=== PATIENT | male | born 1970 | race Caucasian/White ===

== ENCOUNTER 2016-09-30 09:26 | Emergency (ER) | payer OTHER ==
[~2016-09-30] VITALS: Ht 167.6 cm; Wt 105.0 kg
[~2016-09-30 09:26] MED LIST: ALBUAER2 INH
[2016-09-30 09:30] VITALS: TEMP 36.9; Ht 167.6 cm; Wt 105.0 kg
[2016-09-30] MEDS ORDERED: VNTHFA/IN INH (09:57)
[2016-09-30] MEDS ORDERED: OXYC-57 PO (09:57)
[2016-09-30] MEDS ORDERED: MoRPHine SULFATE 4 MG/ML 1 ML CARP\\VIAL IM STA (10:40)
[2016-09-30] MEDS ORDERED: DEXAMETHASONE SOD INJ 10 MG/ML VIAL IM ONE (10:45)
[2016-09-30] MEDS ORDERED: ONDANSETRON 4MG OD TAB PO ONE (10:45)
[2016-09-30] MEDS ORDERED: OXYC1TAB3 PO (12:05)
[2016-09-30] MEDS ORDERED: PRED50TA PO (12:05)
--- NOTE | 2016-09-30 12:06 | EMERGENCY ROOM VISIT NOTE ---
History First contact with patient: 10:19 Chief Complaint: LEG PAIN,LEG INJURY Stated Complaint: RIGHT LEG PAIN AND SWELLING History of Present Illness The patient is a 45 year old male who presents to the Emergency Department by private vehicle for evaluation of his RIGHT-sided leg pain and low back pain. He reports a history of lumbar trauma several years ago. He reports that he was "paralyzed" for several years. He was eventually able to get to the point where he could ambulate with a cane. He reports that he awoke yesterday with increasing pain in his low back with radiation down his RIGHT leg. He reports that this does occur occasionally. He reports some numbness to the anterior surface of the leg which waxes and wanes. He denies any falls or trauma to the spine. He rates his current discomfort as a 10/10. He denies any fevers, chills, loss of control bowel/bladder, saddle anesthesia, abdominal pain, hematuria, or dysuria. Review of Systems A complete 10-point Review of Systems was discussed with the patient, with pertinent positives and negatives listed in the History of Present Illness. All remaining Review of Systems questions can be considered negative unless otherwise specified. Past Medical/Surgical History Medical Problems: (1) ASTHMA, UNSPECIFIED (2) HTN (hypertension) Surgical Problems: (1) History of appendectomy Family History FH: HTN (hypertension) FH: cancer FH: diabetes mellitus Social History Smoking Status: Current Every Day Smoker Alcohol Use: none Drug Use: none Marital Status: single Occupation Status: employed Current/Historical Medications Scheduled Albuterol Hfa (Ventolin Hfa), 2-4 PUFFS INH Q6H Budesonide/Formoterol Fumarate (Symbicort 80/4.5 Inhaler), 2 PUFFS INH BID Prednisone (Prednisone), 50 MG PO DAILY Scheduled PRN Oxycodone Ir (Roxicodone Ir), 1-2 TAB PO Q4H PRN for Pain Oxycodone/Acetaminophen 5MG/325MG (Percocet 5MG/325MG), 1 TABLETS PO BID PRN for Pain Allergies Coded Allergies: Aspirin (Verified Allergy, Unknown, 09/30/16) Physical Exam Vital Signs Date Time Temp Pulse Resp B/P Pulse Ox O2 Delivery O2 Flow Rate FiO2 09/30/16 12:26 69 16 140/75 98 Room Air 09/30/16 10:08 73 09/30/16 09:30 36.9 74 18 150/99 94 Room Air Pain Rating (0-10): 10 Physical Exam VITAL SIGNS - Vital signs and nursing notes were reviewed. GENERAL - 45-year-old male appearing his stated age and in noticeable discomfort throughout the exam. NECK - FROM of the cervical spine. ABDOMEN - Abdominal contour obese without pulsations or visible masses. BS normoactive all four quadrants. No tenderness, palpable masses, hepatosplenomegaly, or ascites noted. MUSCULOSKELETAL - ROM of the lumbar spine region was limited secondary to patient discomfort. Pt was laying on the exam table. Pt made guarded movements when asked to change position. No step-off deformities were palpated down the thoracolumbar spines. Moderate Tenderness to Palpation experienced at the level of the RIGHT sided paraspinal muscle distribution. No reproducible tenderness to palpation across the iliac spine. NEUROLOGIC - REFLEXES: +1/4 patellar reflexes B/L. SENSORY: Spinothalamic tract was found to be intact with ability to discriminate sharp versus dull sensation at the level of hip joint down do the great toe. No sensory defects of the dorsal column were appreciated utilizing light touch for evaluation. CEREBELLAR: Pt able to perform rapid alternating movements of the feet. EXTREMITIES - Range of Motion - No tremors, ticks, or fasciculations of the lower extremities noticed during inspection. Pt had +4/5 strength appreciated bilaterally in the lower extremities against examiner's resistance. VASCULAR - Capillary refill of the great toe was brisk. No mottling or blanching of the extremities present. +3/5 dorsalis pedis pulses palpated bilaterally. Medical Decision & Procedures Medications Administered Medications (Trade) Dose Ordered Sig/Haris Route Start Time Stop Time Status Last Admin Dose Admin Morphine Sulfate (MoRPHine SULFATE INJ) 4 mg NOW STAT IM 09/30/16 10:40 09/30/16 10:41 DC 09/30/16 11:03 4 MG Dexamethasone Sodium Phosphate (Decadron Inj) 10 mg NOW ONCE IM 09/30/16 10:45 09/30/16 10:46 DC 09/30/16 11:04 10 MG Ondansetron HCl (Zofran Odt) 4 mg ONE ONCE PO 09/30/16 10:45 09/30/16 10:46 DC 09/30/16 11:03 4 MG ED Course Patient was seen and evaluated by myself. Previous emergency department visit notes were reviewed. Patient was treated with 4 mg morphine, 10 mg Decadron, and 4 mg Zofran. Patient was reevaluated and reports feeling much better at this time. The patient was encouraged to follow up with his primary care provider for continued management. He was educated on worrisome symptoms for return visit to the emergency department. Patient discharged home afebrile and in good condition. Medical Decision Given the patient's presentation and stated complaints, I did elect to perform the above-mentioned workup. The patient presents today with an acute exacerbation of chronic lumbar back pain. He does have subjective RIGHT-sided radiculopathy. He has no worrisome exam findings at this point. The patient was treated and responded well to pain medication and anti-inflammatories. He' ll replace a short course of prednisone. He has Percocet to use at home in the interim. He will follow-up with his primary care provider or return for any changing or worsening symptoms. Patient discharged home in good condition. In the evaluation and treatment of this patient the following differential diagnoses were considered: Cauda equina syndrome, discitis, HNP, sciatica, epidural abscess, psoas abscess, musculoskeletal strain, lumbar fracture, lumbar dislocation, lumbar subluxation, spondylolisthesis, spondylosis, or compression fracture. Impression Primary Impression: Lumbar radiculopathy, right Additional Impression: Acute exacerbation of chronic low back pain Departure Information Dispostion Home / Self-Care Condition GOOD Prescriptions Prednisone (Prednisone) 50 Mg Tab 50 MG PO DAILY for 4 Days, #4 TAB Prov: Ector Solorio PA-C 09/30/16 Oxycodone Ir (Roxicodone Ir) 5 Mg Tab 1-2 TAB PO Q4H Y for Pain, #10 TAB For Initial Treatment Prov: Ector Solorio PA-C 09/30/16 Referrals No Doctor, Assigned (PCP) Patient Instructions Back Pain - [facility], [facility] Additional Instructions You have been treated in the Emergency Department for Back Pain. You have received pain medicine in the emergency department which impairs your ability to operate a vehicle. It is illegal for you to drive after receiving these medicines. You have been prescribed OxyIR to be used for pain control. This is a narcotic medication. You cannot drive or consume alcohol while on this medicine. This medicine should only be used for pain that cannot be controlled with over-the- counter pain medicines. You have been prescribed Prednisone 50 mg to be taken orally once a day for the next 4 days. This is an anti-inflammatory medicine to be used to help minimize your symptoms. You should take the COMPLETE course of the medication. For pain control, you can use the following gljg-lii-mttbiko medicines (if >12 yo): - Regular strength (325mg/tab) Tylenol (acetaminophen) 2 tabs every 4-6 hours as needed. Do not exceed 12 tablets in a 24 hour period. Avoid taking more than 4 grams (4000 mg) of Tylenol per day. This includes any other sources of acetaminophen you may take on a regular basis. - Regular strength (200 mg/tab) Advil (ibuprofen) 1-2 tabs every 4-6 hours as needed. Do not exceed a dose of 3200 mg per day. If this is an acute injury, ice can be applied to the area of pain for the first 3 days to help decrease pain and inflammation. After the first 3 days, a heating pad can be used over the area for continued soothing relief. You should schedule a follow-up appointment in 2-3 days with your Primary Care Provider for further evaluation and treatment of your back pain. Return to the Emergency Department if your current symptoms worsen despite treatment course outlined above, or if you develop any of the following symptoms : intractable pain despite aforementioned treatment course, loss of control of your bowel or bladder, numbness or tingling in your groin, or development of a fever. Problem Qualifiers
[2016-09-30 12:26] VITALS: BP 140/75; PULSE 69; O2SAT 98
[2016-09-30] MEDS ORDERED: SYMIN/8045 INH (14:44)
== END 2016-09-30 12:26 | disposition home or self-care (01) ==
LOC: C.EDB 09:28 → C.EDC 12:26
DX: M54.16 Radiculopathy, lumbar region (principal); M54.5 Low back pain; G89.29 Other chronic pain; J45.909 Unspecified asthma, uncomplicated; I10 Essential (primary) hypertension; F17.210 Nicotine dependence, cigarettes, uncomplicated

== ENCOUNTER → 2016-12-15 | Outpatient (CLI) | payer OTHER ==
[~2016-12-15] MED LIST changes: -ALBUAER2 INH; +OXYC-57 PO; +OXYC1TAB3 PO; +SYMIN/8045 INH; +VNTHFA/IN INH
--- NOTE | 2016-12-16 04:34 | PAP/PSG TECHNICIAN REPORT ---
[facility] Construction Electrician Polysomnogram Report Study name: None Report date: 12/16/2016 Study date: 12/15/2016 Referring Physician: Mac Lazo M.D. Name: SHARMIN TALAVERA Interpreting Physician: Mac Lazo M.D. Date of : 1970 Construction Electrician: Joie Emanuel RPS. Sex: Male Age: 46 StudyType: PSG Weight: 227 lbs Height: 46 years, Height 5' 7" BMI: 35.55 Medications: Sildenafil 20 mg, Ventolin HFA 108 ( 90 Base), Oxycodone-Acetaminophen 5-325mg Patient History 46 yr. old male here for diagnostic sleep study. Patient was diagnosed with SABI in past. Patient complains of loud snoring, witnessed apnea and EDS. Patient is a heavy smoker. Patient has chronic back pain, and sometimes needs to get out of bed and stand for awhile. Patients [place] sleepiness scale score is 10/24. Parameters Monitored NPSG: E1-M2, E2-M1, Fp1-M2, Fp2-M1, F3-M2, F4-M2, F4-M1, C3-M2, C4-M2, C4-M1, O1-M2, O2-M2, O2-M1, T3-M2, T4-M1, P3-M2, P4-M1, CHIN1, CHIN2, HR, EKG, Legs, PFLOW, SNOR, FLOW, CFLOW, Tidal Volume, THOR, ABDO, SpO2, PLTH, CPRESS, ETCO2 Wave, ETCO2, pH Sleep Architecture Sleep Stages Time at Lights Off 9:56:47 PM STAGES Time (min.) TST (%) Time at Lights On 4:17:47 AM Wake 110.0 -- Total Recording Time (TRT) 368.50 min. N1 15.5 6 Total Sleep Period (TSP) 303.0 min. N2 192.5 74 Total Sleep Time (TST) 258.5min. N3 14.0 5 Awake Time 110.0 min. REM 36.5 14 Wake after Sleep Onset 61.5 min. Sleep Efficiency (SE) 70 % Sleep Onset Latency (JANNA) 61.0 min. Number of Stage 1 Shifts None Awakenings 12 Stage Changes 52 Number of REM periods 5 REM 36.5 14 REM Latency 69.5 min. NREM 222.0 86 Body Position Analysis Supine Right Left Side Prone Vertical Total Sleep Time (min.) 229.8 71.9 0.0 71.87 5.2 41.6 Total Sleep Time (%) 72% 28% 0% 28 0% N/A% Total Sleep Time REM (min.) 21.5 15.0 0.0 None 0.0 0.0 Total Sleep Time NREM (min.) 165.1 56.9 0.0 None 0.0 0.0 Intermittent Wake (min.) 43.1 20.2 0.0 None 5.2 41.6 Total Sleep Period (%) 68% None None None None None Arousals Myoclonus (PLM) * Events Count Index Events Count Index Spontaneous 2 0 Events Awake (PLMW) 67 36.5 Respiratory 3 1.4 Events Asleep w/ Arousal (PLMA) 4 0.9 PLM 3 1 Events Asleep w/o Arousal (PLMS) 25 5.8 Snoring 4 1 Total Asleep 29 6.7 Total 12 3 Total 96 16 Respiratory Analysis * CA OA MA CH H RERA Total Count 0 1 0 0 47 1 48 Index 0.0 0.2 0.0 0 10.9 0 11.4 Mean Duration 0.0 9.9 0.0 0.00 21.1 38.3 21.2 Longest Duration 0.0 9.9 0.0 0.00 0.0 38.3 49.0 Respiratory Event Summary Total Supine ~Supine Right Left Prone REM NREM Apneas Count 1 1 0 0 N/A N/A 1 0 Index 0.2 0 0 0.0 N/A N/A 2 0 Hypopneas (4% Desat) Count 47 31 16 16 N/A N/A 33 14 Index 10.9 10.0 13 13.4 N/A N/A 54.2 3.8 Apneas & All Hypopneas Count 48 32 16 16 N/A N/A 34 14 Index 11.1 10 13 13 N/A N/A 55.9 3.8 Respiratory Events (Supervisor Engraving+All Hyp+RERA) Count 48 33 16 16 N/A N/A 34 14 Index 11.4 11 13 13.4 N/A N/A 55.9 4.1 Respiratory Related Arousal Count 3 33 0 0 N/A N/A 3 3 Index 1.4 2 0 0 N/A N/A 5 1 Snoring Analysis Supine Right Left Prone REM NREM Total Snore duration 25.7 min Snores count 1,060 204 N/A N/A 119 1,145 1,264 Snore mean duration 1.2 Sec Snores index 341 170 N/A N/A 195.6 309.5 293.4 TST with snoring (%) 9.9% Desaturation Event Summary: Minimum %SpO2 Event Count Mean/Min/Max Duration(sec.) Desaturation Index % Time In Bed > 90 27 35.1 / 10.8 / 60.0 41.5 10.9 86 - 90 49 24.9 / 5.3 / 54.8 9.5 86.0 81 - 85 4 20.1 / 16.3 / 23.3 27.5 2.4 76 - 80 0 N/A 0.0 0.6 71 - 75 0 N/A 0.0 0.0 66 - 70 0 N/A 0.0 0.0 61 - 65 0 N/A 0.0 0.0 56 - 60 0 N/A 0.0 0.0 51 - 55 0 N/A 0.0 0.0 < 50 0 N/A 0.0 0.0 Total REM NREM Awake <50% 0.0 min. 0.0 min. 0.0 min. 0.0 min. 51 - 60% 0.0 min. 0.0 min. 0.0 min. 0.0 min. 61 - 70% 0.0 min. 0.0 min. 0.0 min. 0.0 min. 71 - 80% 2.2 min. 1.6 min. 0.4 min. 0.3 min. 81 - 90% 317.1 min. 28.8 min. 217.6 min. 70.7 min. 91 - 100% 39.1 min. 6.1 min. 4.0 min. 28.9 min. Average 89 87 88 90 Minimum SpO2 75 75 76 77 Desaturation Event Index 9.9 54.2 3.5 8.2 # Desat. Events below 89% 61 33 13 15 Time(%) with Saturation below 89% 50.7 5.2 38.5 6.9 Time(min.) with Saturation below 89% 181.8 18.7 138.1 24.9 Time (mins) REM (mins) NREM (mins) % of TST SpO2 Below 90% 46 33 N13 88.6 SpO2 Below 88% 18 0 0 25 Heart Rate Analysis Min (bpm) Max (bpm) Average (bpm) Awake 60 109 75 NREM 61 98 71 REM 55 87 72 Overall 55 98 71 Supplemental O2 Values Minimum O2 level: None Value Start Time End Time Construction Electrician Comments slept in the right, prone, and supine positions. No cardiac arrhythmia. PLMs noted. No bruxism noted. Snoring was noted and scored as a 4 on a scale of 0 through 5. (0=no snoring, 5=snoring loud enough to be heard through a closed door or down the storm way) awoke to use the restroom once during the night. stated, I did not sleep, the bed was too hard and my back was really bothering me. The final report will be interpreted and signed by a sleep physician. The completed physician report will then be placed in the patient medical record. Therapy (cm H2O) 0 TIB (min.) 368.5 TST (min.) 258.5 Sleep Onset (min.) 61.0 REM Onset From Sleep (min.) 69.5 Sleep Efficiency % 70 Wakefulness (%) 29 Wakefulness (min.) 110.0 NREM 1 (%) 6 NREM 1 (min.) 15.5 NREM 2 (%) 74 NREM 2 (min.) 192.5 NREM 3 (%) 5 NREM 3 (min.) 14.0 REM (%) 14 REM (min.) 36.5 # Arousals 12 Arousal Index 3 # Snore 1,264 Snore Index 293.4 AHI 11.1 AHI Supine 10 AHI Non-Supine 13 NREM AHI 3.8 REM AHI 55.9 RDI 11.4 # Obstructive Apnea 1 # Central Apnea 0 # Mixed Apnea 0 # Hypopneas 47 RERAs 1 Total Respiratory Events 53 Time Below SpO2 89% (min.) 156.9 Mean NREM SpO2 (%) 88 Mean REM SpO2 (%) 87 Mean Sleep SpO2 (%) 88 Min NREM SpO2 (%) 76 Min REM SpO2 (%) 75 Position Supine (min.) 229.8 Position Non-supine (min.) 71.9 LM Index Sleep 6.7 LM Index NREM 5.9 LM Index REM 11.5 Mean Heart Rate (bpm) 71 Min Heart Rate (bpm) 55
--- NOTE | 2016-12-16 15:03 | POLYSOMNOGRAPH REPORT ---
CLINICAL DATA: 46-year-old male with BMI of 35.[address] Magana with a history of sleep apnea diagnosed in the past. He has loud snoring, witnessed apneas and excessive daytime sleepiness. He also has chronic back pain and has to get out of bed because of his back pain. SLEEP ARCHITECTURE: Total sleep period was 303 minutes. Total sleep time was 258.5 minutes divided between 222 minutes of non-REM sleep and 36.5 minutes of REM sleep. Sleep onset latency was delayed at 61 minutes. REM latency was 69.5 minutes. Sleep efficiency was 78%. Wake after sleep onset was 61.5 minutes. Sleep consisted of stage N1 6%, N2 74%, N3 5%,and REM 14%. AROUSAL DATA: 12 arousals were recorded for an index of 3 per hour. PLM DATA: 29 limb movements of sleep were noted for an index of 6.7 per hour with arousal index of 0.9 per hour. RESPIRATORY DATA: Mild sleep apnea was documented. The AHI was 11.1. There was 1 obstructive apneic episode, 10 seconds in duration. There were 47 hypopneic episodes. The mean duration of hypopnea was 21.1 seconds. OXIMETRY DATA: Nocturnal hypoxemia was seen. Oxygen shannon was 75% during REM. The mean saturation was 89%. Time below 88% was 18 minutes. EKG: Heart rates ranged from 61-98 beats per minute. No arrhythmias were noted. FITTER HELPER'S COMMENTS: The patient slept in the right, prone, and supine positions. Snoring was rated as 4 on a scale of 1-5. IMPRESSION: Mild sleep apnea/hypopnea with an AHI of 11.1 with nocturnal hypoxemia. RECOMMENDATIONS: The patient may benefit from weight loss, use of an oral appliance, or repeat sleep study with CPAP. Clinical correlation is needed. [facility]
== END | disposition home or self-care (01) ==
LOC: C.NEUR 20:00
PROVIDERS: ATTEND Family Medicine
DX: Z01.89 Encounter for other specified special examinations (principal)

== ENCOUNTER → 2017-02-16 | Outpatient (CLI) | payer OTHER ==
--- NOTE | 2017-02-18 17:06 | POLYSOMNOGRAPH REPORT ---
CLINICAL DATA: A 46-year-old male with BMI of 35.[address] Magana for a CPAP titration study. He had a sleep study done on 12/15/2016 which showed mild sleep apnea with an AHI of 11.1. His [place] Sleepiness Score was elevated at 10/24. SLEEP ARCHITECTURE: Total recording time was 405.5 minutes. Total sleep period was 335.5 minutes. Total sleep time was 306 minutes divided between 337.5 minutes of non-REM sleep and 68.5 minutes of REM sleep. Sleep onset latency was delayed at 69.5 minutes. REM latency was 98 minutes. Sleep efficiency was 76%. Wake after sleep onset was 29.5 minutes. Sleep consisted of stage N1 7%, N2 44%, N3 26, and REM 22%. AROUSAL DATA: Eighteen arousals were recorded for an index of 4 per hour. PERIODIC LIMB MOVEMENTS DATA: 38 limb movements during sleep were noted for an index of 7.5 per hour with arousal index of 1.4 per hour. RESPIRATORY DATA: The AHI was 3.7. There were 19 hypopneic episodes, the mean duration of which was 27.5 seconds. OXIMETRY DATA: Significant nocturnal hypoxemia was seen. Oxygen shannon was 78% during REM. The mean saturation was 88%. Time below 88% was 8 minutes. EKG: Heart rates ranged from 54-96 beats per minute. No arrhythmias were noted. [employer]A DRY HOUSE OPERATOR'S COMMENTS: The patient slept in the right, left, and supine position. A ResMed Quattro Air medium mask was used. He was started on CPAP and was titrated up to a final pressure setting of 9 cm of water pressure. At this final pressure setting, he slept for 186.6 minutes with an AHI of 1.3. However, in spite of adequate control of sleep apnea, the patient continued to have nocturnal hypoxemia. Oxygen was added beginning at 4:22 a.m. initially 1 liter per minute and then advancing up to 4 liters per minute with correction of his hypoxemia. IMPRESSION: Obstructive sleep apnea corrected with CPAP 9 cm of water pressure of C-Flex 2, ResMed Quattro Air medium mask with oxygen 4 liters per minute with a residual apnea-hypopnea index of 1.1 and control of nocturnal hypoxemia. RECOMMENDATIONS: The patient should be started on the above noted treatment regimen and seen back in followup within 90 days to document efficacy and compliance. [facility]
== END | disposition home or self-care (01) ==
LOC: C.NEUR 20:00
PROVIDERS: ATTEND Family Medicine
DX: G47.30 Sleep apnea, unspecified (principal)

== ENCOUNTER 2019-10-15 19:07 | Inpatient (IN) ==
--- NOTE | 2019-10-15 21:27 | History & Physical Report ---
Date of Service October 15, 2019 Assessment & Plan (1) Chest pain: Keith Dunlap is a 48 year old gentleman who presents with prolonged syncope following an episode of profound dyspnea leading to a syncopal episode that lasted multiple hours. Syncope Highly irregular history with multiple hours of unconsciousness. Cardiac arrhythmia, valvular dysfunction, vagal stimulation from coughing, hypoxia, seizure are all on differential, but his story doesn't fit any of these very well. Will do a thorough cardiac workup including orthostatic vital signs, echocardiogram, and continuous monitoring Cardiology consult placed for AM Will defer EEG and neurology consult at this time as I feel this is probably less likely with him never having a post ictal state in these episodes, never having any seizure like activity in his witnessed episodes and no other signs of seizure activity despite the extremely prolonged nature of his loss of consciousness. Coronary disease Patient found to have very calcified coronary arteries on CT scan Patient could very well have coronary artery disease multiple risk factors including obesity and very strong smoking history 3 packs a day and he started smoking when he was a preteenage child. Will continue to trend troponins first one in Emergency department this afternoon negative Cardiology consulted may benefit from stress test Will check a lipid panel in am COPD and asthma Breathing is at baseline currently per patient Will continue home albuterol and symbicort PRN duonebs for wheezing Will not treat this as a COPD exacerbation with steroids and antibiotics as symptoms have completely resolved with one duoneb treatment back to his baseline Psychiatric history History of PTSD, OCD, and substance abuse Patient on no medication but does go to trauma therapy May benefit from psychiatric evaluation or psychiatric follow up to see if his disease is optimally controlled Substance Abuse History marijuana and tobacco dependence Smokes Marijuana daily, has no desire to stop educated that this may also exacerbate his COPD and ashtma as well as his cigarette smoking DVT PPx: Lovenox F/E/N: Heart Healthy Diet Dispo: Med Surg with tele will continue to keep on monitor until cardiology evaluates patient. (2) Syncope: (3) Asthma exacerbation in COPD: (4) Left against medical advice: (5) TRENT (generalized anxiety disorder): (6) Obstructive sleep apnea: (7) Hyperlipidemia: History of Present Illness Chief Complaint: Sycnope/Asthma Attack Primary Care Provider: Saul Couch III, AMAIRANI Keith Dunlap is a 48 year old gentleman with a past medical history of PTSD, OCD, Asthma, COPD, tobacco Abuse, Marijuana Abuse, frequent syncope that can last for multiple hours presents for an episode of shortness of breath that the patient referred to as an asthma attack. He used his inhaler and continued to be short of breath and lost consciousness. He reports that this loss of consci ousness was associated mainly with his shortness of breath but also that his heart stopped and skipped beats which happens for him with some regularity he tells me. Particularly whenever he sneezes. With his history of frequent syncope he says that he knows how to fall safely and when he woke up it was 1:30 and he was on the carpet. He was not confused, he did not bite his tongue, he did not have any loss of urine or bowels, He attempted to go into the bathroom and breathe steam from his shower as He continued to feel short of breath but this was unsuccessful and he came into hospital. On presentation to emergency department he was found to be hemodynamically stable and oxygenating well on room air. He was given a duonebs treatment and quickly returned to his usual state of health. Labwork was relatively unremarkable with a negative white count, negative troponin and a normal CMP. ECG appears to have some abnormality in lateral leads but does not appear to be clear ST elevation but rather an artifact shift in baseline. He had a CTA performed which showed no evidence for PE but did show densely calcified pulmonary arteries. ED recommended admission based on prolonged syncope, possible ECG abnormality and calcified coronaries on CT for syncopal workup but patient refused and signed out AMA, he is returning tonight for further workup now from home as a direct admit. He is currently denying all symptoms and feels in his usual state of health. He tells me he has a combination of asthma and COPD at baseline and follows with Dr. Lazo for pulmonology he had a "chest infection" one week ago but that has since resolved. He takes albuterol and symbicort at home. He tells me he is still a smoker, he used to smoke 3 packs per day and is now down to 1 He has a 120 pack year smoking history and has been smoking since he was a small child. He is also a daily marijuana user smokes joints and bowls, no vaping. He refuses to ever stop using marijuana and is adamant about that. Former abuser of heroine and cocaine as well, he was using cocaine and heroine quite frequently but he says he hasn't had anything besides marijuana for about eighteen years. He tells me he has been diagnosed with PTSD and OCD and receives trauma therapy for these but has never been on any medication for his mental health. He tells me he had a heart attack in the past, he was out to dinner with his family when he lost consciousness at the table and awoke some time later with his ex attempting CPR by pounding on his chest. He did not seek medical care at this time and only brought it up to his PCP some time after who told him it sounds like he had a heart attack. He has never had an echocardiogram, heart catheterization, or had his frequent syncope worken up per patient. He generally tries to avoid medical care and several times during my brief interview with him he mentioned that he may leave AMA again to go get a hamburger. Allergies Allergy/AdvReac Type Severity Reaction Status Date / Time aspirin Allergy Intermediate EFFECTS Verified 10/15/19 16:38 BREATHING varenicline [From Chantix] AdvReac Severe Personality Verified 10/15/19 16:38 changes Home Medications Home Medications Medication Instructions Recorded Confirmed Type ibuprofen 200 mg PO Q6H PRN 03/01/19 10/15/19 History albuterol sulfate 90 mcg/actuation 2 puff INHALATION Q6H PRN #8.5 gm 10/06/19 10/15/19 Rx aerosol inhaler budesonide-formoterol HFA 160 2 puff INHALATION BID #10.2 gm 10/06/19 10/15/19 Rx mcg-4.5 mcg/actuation aerosol inhaler cholecalciferol (vitamin D3) 10/15/19 History [Vitamin D3] cyanocobalamin (vitamin B-12) 500 mcg 10/15/19 History [Vitamin B-12] prednisone 40 mg PO DAILY #6 tab 10/16/19 Rx Past Med/Surg History Medical History Asthma Chronic obstructive pulmonary disease Coronary artery calcification Degenerative disc disease TRENT (generalized anxiety disorder) (Chronic) Ganglion cyst GERD (gastroesophageal reflux disease) Hyperlipidemia Hypertension (Chronic) Inguinal hernia (Resolved) RT Osteoarthritis Seasonal allergies Sleep apnea CPAP Surgical History History of appendectomy (Resolved) History of tooth extraction Social History Preferred Language: Latvian Communication Ability: Effective Visual Impairment: No Limitations Hearing Ability: Normal Orthopaedic Technologist Required: No Beliefs That Will Affect Care: Nondenominational Nondenominational Beliefs: spiritism/jehovah's witness marital status: Single Current Living Situation: Family Current Living Situation Comment: lives w/ uncle current occupational status: employed current occupation: [employer] Feels Safe at Home: Yes Smoking Status: Current every day smoker Tobacco Type: cigarettes and smokeless tobacco ; Cigarettes Per Day: 20 ; Second Hand Exposure: Yes (RARELY) ; Hx Alcohol Use: No Hx Substance Use: Yes substance use type: former substance user Childhood Exposure to Second-Hand Smoke: Yes Dental Care, Regularly: No Physical Activity Frequency: Does not Exercise Seatbelt Use: always Sunscreen Use: Yes Review of Systems Constitutional: no fever, no chills, no weakness, no weight loss and no weight gain Eyes: no problem reported Ear, Nose, Mouth, Throat: no problem reported Respiratory: + cough and + dyspnea; no hemoptysis Cardiovascular: + dyspnea, + palpitations, + lightheadedness and + syncope; no chest pain Gastrointestinal: no abdominal pain, no nausea and no vomiting Genitourinary: no dysuria and no urinary frequency Integumentary: no rash and no lesions Neurologic: + syncope; no unsteadiness, no localized weakness, no generalized weakness and no tremor(s) Physical Exam Constitutional: well developed, well nourished and + obese; no acute distress, not ill appearing and not intoxicated appearing Eyes: PERRL, conjunctivae normal, anicteric sclerae ENMT: external ear and nose normal, oropharynx normal Respiratory: normal respiratory effort, lungs clear to auscultation Cardiovascular: RRR, no murmur, no edema Vessels: normal peripheral pulses; no carotid bruit Extremities: normal capillary refill Gastrointestinal (Abdomen): normal bowel sounds, soft, nontender, no hepatosplenomegaly Skin: no rashes, warm and dry Neurologic: PERRL, EOMI, accommodation nl, no face palsy, no dysarthria moves all extremities; no focal motor deficits Psychiatric: Orientation: alert and oriented x 3 Results & Data Vital Signs (Past 12 Hours) Vital Signs Temp Pulse Resp BP Pulse Ox 10/15/19 20:20 36.7 C 87 18 143/87 H 95 Supervising Physician Co-Signing Physician Notes Attending addendum: I have physically seen this patient, have supervised the medical residents activities, and agree with the H&P unless as otherwise noted. Assessment and Plan: Syncope- The patient will be admitted to telemetry for serial cardiac enzymes, serial EKG's, cardiac rhythm monitoring and a 2-D echocardiogram with Dopplers. Patient's reported hours of being involved a highly unusual. Assess for cardiac cause such as arrhythmia. Will likely need a neuro consult. CAD- Risk factors include obesity and very significant smoking history. Standard rule out protocol. Tobacco use disorder/COPD- Cessation counseling. DuoNebs as needed. Remainder of orders and notations as noted. Resident Activity Tracking Resident Involvement: Resident Care Provided Care Provided: Adult Hospital Medicine (1) Syncope Syncope type: unspecified Qualified Code(s): R55 - Syncope and collapse (2) Chest pain Chest pain type: unspecified Qualified Code(s): R07.9 - Chest pain, unspecified
[2019-10-15] MEDS ORDERED: ACETAMINOPHEN 325 MG TAB PO PRN (21:45)
[2019-10-15] MEDS ORDERED: IBUPROFEN 200 MG TAB PO PRN (21:45)
[2019-10-15] MEDS ORDERED: POLYETHYLENE (MIRALAX) 17 GM PACK PO PRN (21:45)
[2019-10-15] MEDS ORDERED: ALBUTEROL HFA 8 GM INHALER INH PRN (21:45)
[2019-10-16] MEDS ORDERED: LACTATED RINGER'S 1,000 ML IV SCH (02:15)
[2019-10-16 07:05] LABS: BUN Creatinine Ratio 13.2 (10-20); Blood Urea Nitrogen 13 mg/dl (7-18); Calcium 8.5 mg/dl (8.5-10.1); Carbon Dioxide 27 mmol/L (21-32); Chloride 106 mmol/L (98-107); Creatinine Clr Calc Pharmacy 103.3 ml/min; Est GFR (African American) 108.1; Est GFR (Non-African American) 93.2; Glucose 107 mg/dl (70-99); Potassium 3.7 mmol/L (3.5-5.1); Sodium 139 mmol/L (136-145)
[2019-10-16 07:10] LABS: Troponin I < 0.015 ng/ml (0-0.045)
[2019-10-16] MEDS ORDERED: ENOXAPARIN INJ 40 MG/0.4 ML SYR SQ SCH (09:00)
[2019-10-16] MEDS ORDERED: FLUTICASONE/VILANTEROL 100/25MCG 14 PUFFS/INHALER INH SCH (09:00)
--- NOTE | 2019-10-16 10:38 | XCELERA ---
[id number] \\[email or web address]\[id number]___[id number]
[2019-10-16 11:02] LABS: Amphetamines+Metham, Urine Pos (Neg); Barbiturates, Urine Neg (Neg); Benzodiazepine, Urine Neg (Neg); Cocaine, Urine Neg (Neg); MDMA (Ecstacy), Urine Neg (Neg); Methadone, Urine Neg (Neg); Opiate, Urine Pos (Neg); Phencyclidine, Urine Neg (Neg)
--- NOTE | 2019-10-16 11:27 | Electrocardiogram Report ---
Test Reason : Blood Pressure : / mmHG Vent. Rate : 057 BPM Atrial Rate : 057 BPM P-R Int : 178 ms QRS Dur : 102 ms QT Int : 414 ms P-R-T Axes : 080 078 072 degrees QTc Int : 402 ms Sinus bradycardia Minor Anterior ST elevation, most consistent with repolarization variant Otherwise normal ECG When compared with ECG of 15-OCT-2019 16:27, No significant change was found Confirmed by Nikko Ospina ([id number]) on 10/16/2019 11:26:58 AM Referred By: Yonathan Ch Confirmed By:Nikko Ospina
--- NOTE | 2019-10-16 13:46 | Cardiology Consultation ---
Date of Consultation October 16, 2019 Assessment & Plan (1) Syncope: (2) Chest pain: (3) Asthma exacerbation in COPD: (4) Coronary artery calcification: 48-year-old man with a very atypical presentation of syncope and no apparent sequelae. No prodromal symptoms to suggest myocardial ischemia. Serial ECG and enzymes negative. Although he does have multiple cardiac risk factors (HTN, obesity, ongoing tobacco use, coronary calcifications incidentally noted on CT), there is no indication his current symptoms or recent syncope are related to myocardial ischemia. However, once he is clinically stable as an outpatient, could consider stress testing to evaluate any potential contribution of myocardial ischemia to exercise intolerance or his chronic dyspneic symptoms. Since he has ongoing bronchospasm and his current admission seems unrelated to myocardial ischemia, will not perform stress study presently. Did advise him on cardiac risk factors, the need for tobacco abstinence, lipid management, weight management, exercise, and obtaining routine medical follow-up. In regards to his syncope, defer to primary team to sort through neurologic, factitious, psychogenic, or other potential noncardiac etiologies. Case discussed with AMAIRANI Quintana History of Present Illness Reason for Consultation: Syncope Requesting Physician: Miguel Spann MD Attending Physician: Ky Resendiz MD History of Present Illness 48-year-old man with history of asthma, prior substance/opioid misuse, and psychiatric diagnoses (PTSD/OCD per patient), but no documented cardiac history, who was admitted yesterday for evaluation of an unwitnessed prolonged syncopal episode. The patient notes that he has had multiple syncopal episodes over the years, generally in response to the onset of severe pain from a "pinched nerve" in his right groin region. He has never had traumatic syncope and had only one other prolonged episode of syncope many years ago (he thought he had a heart attack and stated that he received CPR from a relative, however he did not seek any medical attention for this episode and had no apparent sequelae). When he awoke yesterday morning he noted that he was having "an asthma attack", which he described as difficulty pulling in his breath. He notes chronic dyspnea and at least mild bronchospasm as well as chronic chest discomfort. Although his breathing was worse yesterday morning, he noted no change in the chest discomfort (which was poorly localized) and noted no other symptoms aside from a mild headache. No fever, chills, cough, diaphoresis, nausea or vomiting. No focal neurologic symptoms. He states that he lost consciousness and awoke approximately 4 hours later. No bowel or bladder incontinence. No confusion. When he awoke he was still dyspneic but had no new symptoms. He was seen in the ER, signed out against medical advice, but returned as a direct admission for further evaluation. He has had an uneventful stay overnight. Troponin negative x3. Baseline ECG shows chronic mild anterior ST elevation consistent with repolarization variant, no change from prior studies. Echocardiogram was unremarkable. CT of the chest showed no pulmonary embolism but did show evidence of coronary calcification. At the time of my evaluation, the patient was asymptomatic. Allergies Allergy/AdvReac Type Severity Reaction Status Date / Time aspirin Allergy Intermediate EFFECTS Verified 10/15/19 16:38 BREATHING varenicline [From Chantix] AdvReac Severe Personality Verified 10/15/19 16:38 changes Home Medications Home Medications Medication Instructions Recorded Confirmed Type ibuprofen 200 mg PO Q6H PRN 03/01/19 10/15/19 History albuterol sulfate 90 mcg/actuation 2 puff INHALATION Q6H PRN #8.5 gm 10/06/19 10/15/19 Rx aerosol inhaler budesonide-formoterol HFA 160 2 puff INHALATION BID #10.2 gm 10/06/19 10/15/19 Rx mcg-4.5 mcg/actuation aerosol inhaler cholecalciferol (vitamin D3) 10/15/19 History [Vitamin D3] cyanocobalamin (vitamin B-12) 500 mcg 10/15/19 History [Vitamin B-12] prednisone 40 mg PO DAILY #6 tab 10/16/19 Rx Patient History Medical History Asthma Chronic obstructive pulmonary disease Coronary artery calcification Degenerative disc disease TRENT (generalized anxiety disorder) (Chronic) Ganglion cyst GERD (gastroesophageal reflux disease) Hyperlipidemia Hypertension (Chronic) Inguinal hernia (Resolved) RT Osteoarthritis Seasonal allergies Sleep apnea CPAP Surgical History History of appendectomy (Resolved) History of tooth extraction Social History Preferred Language: Puerto Rican Communication Ability: Effective Visual Impairment: No Limitations Hearing Ability: Normal Dietary Server Required: No Beliefs That Will Affect Care: Adventism Adventism Beliefs: scientologist/yazidi marital status: Single Current Living Situation: Family Current Living Situation Comment: lives w/ uncle current occupational status: employed current occupation: [employer] Feels Safe at Home: Yes Smoking Status: Current every day smoker Tobacco Type: cigarettes and smokeless tobacco ; Cigarettes Per Day: 20 ; Do You Dip or Chew Tobacco: Yes (1 can/week) ; Second Hand Exposure: Yes (RARELY) ; Tobacco Cessation Education Requested by Patient: No Hx Alcohol Use: No Hx Substance Use: Yes substance use type: former substance user Childhood Exposure to Second-Hand Smoke: Yes Dental Care, Regularly: No Physical Activity Frequency: Does not Exercise Seatbelt Use: always Sunscreen Use: Yes Review of Systems Constitutional: + fatigue; no fever, no chills, no weight loss and no weight gain Eyes: no problem reported Ear, Nose, Mouth, Throat: no problem reported Respiratory: + dyspnea; no cough Cardiovascular: as per Subjective / HPI Gastrointestinal: no abdominal pain and no change in stools Musculoskeletal: no myalgia Integumentary: no rash and no new lesions Neurologic: + syncope; no falls Psychiatric: as per Subjective / HPI and + problem reported Hematologic / Lymphatic: no easy bleeding and no easy bruising Physical Exam Physical Exam: No distress. Skin: no ecchymoses or generalized lesions. HEENT: unremarkable. Neck: no JVD or carotid bruits. Lungs: Clear with mild wheezing at rest, increased on forced exhalation. No accessory muscle use, nasal flaring, or intercostal retraction. Cardiac: regular rhythm and no murmur or gallop. Abdomen benign. Extremities: no edema, pulses brisk. Neurologic: Voluble affect, nonfocal. Results & Data Vital Signs (Past 12 Hours) Vital Signs Temp Pulse Pulse Resp BP BP Pulse Ox 10/16/19 12:20 157/92 H 10/16/19 11:56 98.1 F 86 20 161/103 H 97 10/16/19 07:56 97.5 F L 58 L 19 135/75 94 10/16/19 07:31 62 10/16/19 04:18 97.9 F 53 L 20 114/65 94 Laboratory Results 09/30/19 02/07/20 02/07/20 08:47 16:25 22:19 Troponin I < 0.015 < 0.015 LDL Cholesterol, Calc 192 H 10/16/19 05:49 Troponin I < 0.015 LDL Cholesterol, Calc Diagnostic Findings Echocardiogram 10/16/19 was normal. Serial ECG showed sinus rhythm with minor anterior ST elevation consistent with repolarization variant, unchanged compared with ECG from 03/06/2019. Chest CT showed densely calcified coronary arteries, mild diffuse peribronchiolar thickening, hepatic steatosis, no evidence of pulmonary embolism. PG Care Time/CCT Total # of Minutes Spent Total Time Spent with Patient: Total time spent is greater than 50% in coordination of care (as documented) at patient's floor/unit and/or counseling patient: Coding Level of Care Code 00577 Inpt Consult Level 4 Diagnoses Syncope R55 Syncope type: unspecified Chest pain R07.9 Chest pain type: unspecified Asthma exacerbation in COPD J44.1; J45.901 Coronary artery calcification I25.10; I25.84 (1) Syncope Syncope type: unspecified Qualified Code(s): R55 - Syncope and collapse (2) Chest pain Chest pain type: unspecified Qualified Code(s): R07.9 - Chest pain, unspecified
--- NOTE | 2019-10-16 14:18 | Discharge Summary ---
Date of Service October 16, 2019 Admission HPI Per Admitting Provider Keith Dunlap is a 48 year old gentleman with a past medical history of PTSD, OCD, Asthma, COPD, tobacco Abuse, Marijuana Abuse, frequent syncope that can last for multiple hours presents for an episode of shortness of breath that the patient referred to as an asthma attack. He used his inhaler and continued to be short of breath and lost consciousness. He reports that this loss of consciousness was associated mainly with his shortness of breath but also that his heart stopped and skipped beats which happens for him with some regularity he tells me. Particularly whenever he sneezes. With his history of frequent syncope he says that he knows how to fall safely and when he woke up it was 1:30 and he was on the carpet. He was not confused, he did not bite his tongue, he did not have any loss of urine or bowels, He attempted to go into the bathroom and breathe steam from his shower as He continued to feel short of breath but this was unsuccessful and he came into hospital. On presentation to emergency de partment he was found to be hemodynamically stable and oxygenating well on room air. He was given a duonebs treatment and quickly returned to his usual state of health. Labwork was relatively unremarkable with a negative white count, negative troponin and a normal CMP. ECG appears to have some abnormality in lateral leads but does not appear to be clear ST elevation but rather an artifact shift in baseline. He had a CTA performed which showed no evidence for PE but did show densely calcified pulmonary arteries. ED recommended admission based on prolonged syncope, possible ECG abnormality and calcified coronaries on CT for syncopal workup but patient refused and signed out AMA, he is returning tonight for further workup now from home as a direct admit. He is currently denying all symptoms and feels in his usual state of health. He tells me he has a combination of asthma and COPD at baseline and follows with Dr. Lazo for pulmonology he had a "chest infection" one week ago but that has since resolved. He takes albuterol and symbicort at home. He tells me he is still a smoker, he used to smoke 3 packs per day and is now down to 1 He has a 120 pack year smoking history and has been smoking since he was a small child. He is also a daily marijuana user smokes joints and bowls, no vaping. He refuses to ever stop using marijuana and is adamant about that. Former abuser of heroine and cocaine as well, he was using cocaine and heroine quite frequently but he says he hasn't had anything besides marijuana for about eighteen years. He tells me he has been diagnosed with PTSD and OCD and receives trauma therapy for these but has never been on any medication for his mental health. He tells me he had a heart attack in the past, he was out to dinner with his family when he lost consciousness at the table and awoke some time later with his ex attempting CPR by pounding on his chest. He did not seek medical care at this time and only brought it up to his PCP some time after who told him it sounds like he had a heart attack. He has never had an echocardiogram, heart catheterization, or had his frequent syncope worken up per patient. He generally tries to avoid medical care and several times during my brief interview with him he mentioned that he may leave AMA again to go get a hamburger. Principal Diagnosis Syncope, asthma Discharge Exam Constitutional WD/WN, vitals as above Respiratory normal respiratory effort; no respiratory distress and no labored breathing Auscultation: + rhonchi and + wheezes Cardiovascular RRR, no murmur, no edema Gastrointestinal (Abdomen) Inspection/Auscultation: abdomen normal to inspection and normal bowel sounds; abdomen not distended Percussion/Palpation: abdomen soft; abdomen nontender Musculoskeletal no cyanosis or clubbing, extremities motor strength 5/5 Skin no rashes, warm and dry Neurologic moves all extremities and awake Psychiatric A+Ox3, euthymic affect Discharge Data Allergies Allergy/AdvReac Type Severity Reaction Status Date / Time aspirin Allergy Intermediate EFFECTS Verified 10/15/19 16:38 BREATHING varenicline [From Chantix] AdvReac Severe Personality Verified 10/15/19 16:38 changes Consultations 10/15/19 21:45 Consult Cardiology Routine Hospital Course (1) Syncope: Highly irregular history with multiple hours of unconsciousness following apparent bronchospasm. No residual effects to indicate seizure or prolonged hypoxia. Today Mr. Dunlap is in his normal state of health. Troponins negative x3, echo normal Cardiology consulted - could consider outpatient stress test Patient found to have very calcified coronary arteries on CT scan Patient could very well have coronary artery disease multiple risk factors including obesity and very strong smoking history 3 packs a day and he started smoking when he was a preteenage child. Could consider adding statin and ASA to his regimen after discussing with pcp - elevated cholesterol on lipid panel in May Encouraged to quit smoking (2) Asthma exacerbation in COPD: Breathing is at baseline currently per patient Will continue home albuterol and Symbicort PRN duonebs for wheezing while inpatient Discharge with short burst of 40 mg prednisone x 4 days given that patient's description of events begins with intense bronchospasm. He should follow up with his it sales representative (3) TRENT (generalized anxiety disorder): Psychiatric history History of PTSD, OCD, and substance abuse Patient on no medication but does go to trauma therapy Has been on Wellbutrin in the past. Could consider trying an SSRI as his anxiety does not seem to be well controlled (4) Obstructive sleep apnea: Continue Cpap (5) Hyperlipidemia: cholesterol elevated on lipid panel from May, see above (6) Hepatic steatosis: Long discussion about finding of hepatic steatosis on CT scan and lifestyle changes Follow up with pcp Total Time Total Time Spent Total Time Spent (In Minutes): greater than 30 minutes Discharge Plan Discharge Items Patient Disposition: Home - Self-Care Reason For Visit: SYNCOPE,COPD EXACERBATION,CHEST PAIN Discharge Diagnosis: Syncope, COPD/asthma exacerbation Activity: Resume your previous activity Activity Comment: gradually as tolerated Non-emergency contact: Primary Care Provider Call non-emergency contact if: you have any medication questions Follow-up/Referrals: Saul Couch III, CRNP [Primary Care Provider] - Diet: Heart Healthy Addtl Attending Provider Instructions: Syncope, Coronary artery disease, COPD, Asthma PLEASE FOLLOW UP WITH YOUR PRIMARY CARE PROVIDER AND YOUR HEAD CUSTODIAN WITHIN A WEEK You do not appear to be having an acute problem with your heart - your EKG is similar appearing to the one you had over the summer, your echocardiogram (ultrasound of your heart) was normal, your troponins (lab test to check for injury to the heart) were normal for all three checks. You did have very calcified coronary arteries on your CT scan. Please discuss possible outpatient stress testing with your primary care provider as well as optimizing your medication regimen given your risk factors. Your provider may want to add a baby aspirin and or statin to manage your cholesterol. The source of your loss of consciousness appears to have been a bronchospasm which caused you to be short of breath. Continue your home albuterol and Symbicort I will give you a short burst of prednisone for 4 total days. QUITTING SMOKING IS THE MOST IMPORTANT THING YOU CAN DO RIGHT NOW FOR YOUR PULMONARY AND CARDIAC HEALTH. I encourage you to also quit smoking marijuana as this can antagonize your COPD/asthma Pending Studies at Discharge: No Stand-Alone Forms: My [facility], Work/School Release (Inpt), Smoking Cessation Medications and DC Order Prescriptions: New prednisone 20 mg Tablet 40 mg PO DAILY Qty: 6 RF: 0 Continued albuterol sulfate [Ventolin HFA] 90 mcg/actuation HFA aerosol inhaler 2 puff INHALATION Q6H PRN (Reason: Shortness Of Breath Or Wheezing) Qty: 8.5 RF: 0 Symbicort 160-4.5 mcg/actuation HFA aerosol inhaler 2 puff INHALATION BID Qty: 10.2 RF: 5 cholecalciferol (vitamin D3) [Vitamin D3] 25 mcg (1,000 unit) Capsule RF: 0 cyanocobalamin (vitamin B-12) [Vitamin B-12] 500 mcg Tablet 500 mcg RF: 0 ibuprofen 200 mg Tablet 200 mg PO Q6H PRN (Reason: Pain) RF: 0 Discontinued albuterol sulfate [Ventolin HFA] 90 mcg/actuation Hfa Aerosol Inhaler 1 inh INHALATION QID PRN (Reason: sob) RF: 0 Symbicort 80-4.5 mcg/actuation Hfa Aerosol Inhaler 2 puff INHALATION BID RF: 0 Discharge Orders: Discharge Order (Routine); Ordered 10/16/19 Ordered By: Mallorie Dubose Admission Data Admit Date/Time: 10/15/19 20:07 Attending Provider: Ky Resendiz Admit Provider: Yonathan Ch Primary Care Provider: aSul Couch III Other Providers: Nikko Ospina Coding Level of Care Code D/C Day Management >30 mins Diagnoses Syncope R55 Syncope type: unspecified Asthma exacerbation in COPD J44.1; J45.901 TRENT (generalized anxiety disorder) F41.1 Obstructive sleep apnea G47.33 Hyperlipidemia E78.5 Hepatic steatosis K76.0
--- NOTE | 2019-10-17 01:17 | Billing Data ---
Date of Service October 17, 2019 Coding Level of Care Code 25974 OBS Care - Level 3
[2019-10-17] MEDS ORDERED: predniSONE 20 MG TAB PO SCH (09:00)
[2019-10-20 09:29] LABS: Amphetamine Urine, Confirm 2320 ng/mL (<250); Codeine Urine NEGATIVE ng/mL (<50); Hydrocodone Urine NEGATIVE ng/mL (<50); Hydromor Urine 3760 ng/mL (<50); Marijuana Quant, GCMS Urine 1310 ng/mL (<5); Methamphetamine, Ur Confirm NEGATIVE ng/mL (<250); Morphine Urine NEGATIVE ng/mL (<50); Norhydrocodone Conf Ur NEGATIVE ng/mL (<50); Noroxycodone Urine 198 ng/mL (<50); Oxycodone Urine NEGATIVE ng/mL (<50); Oxymorph Urine 209 ng/mL (<50)
== END 2019-10-16 15:53 | disposition home or self-care (01) | DRG 312 ==
LOC: 2N 20:07 → SUATTDRO 20:07